=== PATIENT | female | born 1935 | race Caucasian/White ===

== ENCOUNTER 2019-02-16 10:27 | Inpatient (IN) | payer MEDICARE, OTHER ==
[~2019-02-16] VITALS: Ht 154.9 cm; Wt 73.4 kg
[2019-02-16 11:30] VITALS: BP 131/60
[2019-02-16] MEDS ORDERED: VYTO10TA18 PO (11:59)
[2019-02-16] MEDS ORDERED: METF-839 PO (11:59)
[2019-02-16] MEDS ORDERED: METF500T4 PO (11:59)
[2019-02-16] MEDS ORDERED: NEXI40CA PO (11:59)
[2019-02-16] MEDS ORDERED: LISI20TA PO (11:59)
[2019-02-16] MEDS ORDERED: FOSA70TA PO (11:59)
[2019-02-16] MEDS ORDERED: BISO5TAB5 PO (11:59)
[2019-02-16] MEDS ORDERED: LORA-674 PO (11:59)
[2019-02-16] MEDS ORDERED: OS-CTAB3 PO (11:59)
[2019-02-16] MEDS ORDERED: CENT1TAB PO (11:59)
[2019-02-16] MEDS ORDERED: ASPI81TA85 PO (11:59)
[2019-02-16] MEDS ORDERED: SALOPAD4 TD (11:59)
[2019-02-16] MEDS ORDERED: LISI10TA2 PO (12:03)
[2019-02-16] MEDS ORDERED: MERO1INJ IV (12:06)
[2019-02-16] MEDS ORDERED: ENOX30IN3 SC (12:06)
[2019-02-16 12:39] LABS: HEMOGLOBIN 12.6 g/dl (12.0-15.5); MEAN CORPUSCULAR HEMOGLOBIN 30.9 pg (27.0-33.0); MEAN CORPUSCULAR HGB CONC 33.2 g/dl (32.0-36.5); MEAN CORPUSCULAR VOLUME 93.1 fl (80.0-96.0); PLATELET COUNT, AUTOMATED 185 10^3/uL (150-450); RED BLOOD COUNT 4.08 10^6/uL (4.00-5.40); WHITE BLOOD COUNT 17.1 10^3/uL (4.0-10.0)
[2019-02-16 12:56] LABS: INR 1.26
[2019-02-16] MEDS: D5W/0.9% SODIUM CHLORIDE 1,000 ML IV SCH ×2 (13:00→19:43)
[2019-02-16] MEDS ORDERED: MORPHINE 4 MG/ML 1ML VIAL/SYRINGE (J2270) IV PRN (13:15)
[2019-02-16 14:00] LABS: CALCIUM LEVEL 8.4 MG/DL (8.8-10.2); POTASSIUM SERUM 3.7 MEQ/L (3.5-5.1)
[2019-02-16 14:01] LABS: ALBUMIN 3.1 GM/DL (3.2-5.2); BILIRUBIN,TOTAL 3.6 MG/DL (0.2-1.0)
[2019-02-16] MEDS: HEPARIN SOD (PORCINE) 5000 UNITS/ML VIAL SC SCH ×2 (14:57→20:20)
--- NOTE | 2019-02-16 14:57 | HPEPDOC ---
General Date of Admission Feb 16, 2019 at 11:24 Primary Care Physician: A Other Providers Dr Agustin Chief Complaint The patient is a 83-year-old female admitted with a reason for visit of Cholangi tis. 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 US there showed cholelithiasis with thickening of wall with some pericholecystic fluid Patient was diagnosed with acute cholecystitis and was panned for cholecystectomy today however from last night patient started spiking fever and this am there was elevation of wbc and abnormality of LFTs. It was felt patient now probably has choledocholithiasis and cholangitis so the patient was transferred here for Gastroenterology evaluation and possible ERCP. Patient was admitted for Acute cholangitis and possibly choledocholithiasis. Home Medications Scheduled Alendronate Sodium (Fosamax) 70 Mg Tablet, 70 MG PO QWEEK, (Reported) THURSDAYS Aspirin (Aspir 81) 81 Mg Tablet.dr, 81 MG PO QHS, (Reported) Bisoprolol Fumarate (Bisoprolol Fumarate) 5 Mg Tablet, 5 MG PO QPM, (Reported) Calcium Carbonate/Vitamin D3 (Os-Pramod 500-Vit D3 200 Caplet) 1 Each Tablet, 1 TAB PO DAILY, (Reported) Enoxaparin Sodium (Enoxaparin Sodium) 30 Mg/0.3 Ml Syringe, 30 MG SC DAILY, (Reported) GIVEN AT [facility] Esomeprazole Magnesium (Nexium) 40 Mg Capsule.dr, 40 MG PO DAILY, (Reported) Ezetimibe/Simvastatin (Vytorin 10-10 mg Tablet) 1 Each Tablet, 1 TAB PO DAILY, (Reported) Lisinopril/Hydrochlorothiazide (Lisinopril-Hctz 10-12.5 mg Tab) 1 Each Tablet, 1 TAB PO DAILY, (Reported) Loratadine (Loratadine) 10 Mg Tablet, 10 MG PO QHS, (Reported) Meropenem (Meropenem) 1 Gm Vial, 1 GM IV Q12H, (Reported) GIVEN AT [facility] Metformin HCl (Metformin HCl ER) 500 Mg Tab.er.24h, 500 MG PO DAILY, (Reported) Multivit-Min/FA/Lycopen/Lutein (Centrum Silver Tablet) 1 Each Tablet, 1 TAB PO DAILY, (Reported) Scheduled PRN Methyl Salicylate/Menthol (Salonpas Patch) 1 Each Adh..patch, 1 EACH TD DAILY PRN for BACK PAIN, (Reported) Allergies Coded Allergies: No Known Allergies (Unverified Allergy, Unknown, 02/16/19) Past Medical History Medical History Diabetes, Hypertension, hyperlipidemia, CVA, osteoporosis, vit d deficiency, cataracts Surgical History None Family History Significant Family History: Hypertension Social History * Smoker: Denies Alcohol: Denies Drugs: denies A-FIB/CHADSVASC A-FIB History Current/History of A-Fib/PAF?: No Review of Systems Constitutional: Reports: Fever, Weakness Eyes: Denies: Pain, Vision change, Conjunctivae inflammation, Eyelid inflammation, Redness, Other Skin: Denies: Jaundice, Itching Pulmonary: Denies: Dyspnea, Cough, Pleuritic Chest Pain Cardiovascular: Denies: Chest Pain, Palpitations, Orthopnea, Paroxysmal Noc. Dyspnea, Edema Gastrointestinal: Reports: Nausea, Vomiting, Abdominal Pain; Denies: Diarrhea, Constipation, Melena, Hematochezia Hematologic: Denies: Bleeding Excessively, Petecchia Neurological: Reports: Weakness (chronic right sided), Change in speech (chronic after stroke), Other Symptoms (difficulty in writing after stroke) Psych: Reports: Mood Normal Physical Examination General Exam: Positive: Alert, Cooperative, No Acute Distress, Moderate Distress Eye Exam: Positive: PERRLA, Conjunctiva & lids normal, EOMI; Negative: Sclera icteric ENT Exam: Positive: Atraumatic, Tongue Midline, Other ENT (dry mucous membrane) Neck Exam: Positive: Supple; Negative: JVD, thyromegaly Chest Exam: Positive: Clear to auscultation, Normal air movement Heart Exam: Positive: Rate Normal, Regular Rhythm, Normal S1, Normal S2; Negative: Murmurs, Rubs Telemetry: Positive: No significant arrhythmia Abdomen Exam: Positive: BS Hypoactive, Tenderness (right upper quadrant and right lumber region), Other (no guarding or rigidity, But reboud tenderness present) Extremity Exam: Negative: Clubbing, Cyanosis, Edema Skin Exam: Positive: Nl turgor and temperature Laboratory Data Labs 24H Laboratory Tests 2 02/16/19 12:24: Nucleated Red Blood Cells % (auto) 0.0, Prothrombin Time 16.0H, Prothromb Time International Ratio 1.26, Lactic Acid Level 1.6 CBC/BMP Laboratory Tests 02/16/19 12:24 Red Blood Count 4.08, Mean Corpuscular Volume 93.1, Mean Corpuscular Hemoglobin 30.9, Mean Corpuscular Hemoglobin Concent 33.2, Red Cell Distribution Width 13.3 Microbiology Microbiology 02/16/19 Blood Culture, Received Pending Assessment/Plan This is a 83 year old female with PMH of Diabetes, hypertension, hyperlipidemia, 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 US there showed cholelithiasis with thickening of wall with some pericholecystic fluid Patient was diagnosed with acute cholecystitis and was panned for cholecystectomy today however from last night patient started spiking fever and this am there was elevation of wbc and abnormality of LFTs. It was felt patient now probably has choledocholithiasis and cholangitis so the patient was transferred here for Gastroenterology evaluation and possible ERCP. Patient was admitted for Acute cholangitis and possibly choledocholithiasis. Cholelithiasis/choledocholithiasis with cholangitis will keep patient NPO, IVF, morphine prn for pain. Zofran for nausea Meropenem GI consult Dr Mckinnon. Diabetes will hold metformin check FS q 6 hours and lispro as needed. Hypertension BP well controlled at this point will hold ACEi and HCTZ will continue bisoprolol with hold parameters Hyperlipidemia will hold statin and ezetimibe at this point GI prophylaxis with pantoprazole Plan / VTE VTE Prophylaxis Ordered?: Yes DALTON ZAMAN MD Feb 16, 2019 14:28
[2019-02-16] MEDS: MEROPENEM INJ 1 GM in APPROPRIATE DILUENT 1 EA IV SCH ×2 (14:58→20:20)
[2019-02-16] MEDS ORDERED: ONDANSETRON 4MG/2ML VIAL (J2405) IV PRN ×2 (15:00→18:15)
[2019-02-16 15:36] VITALS: BP 135/61
[2019-02-16] MEDS ORDERED: ISOVUE-300 61% 50ML VIAL (Q9967) As Ordered ONE ×2 (15:47→17:29)
[2019-02-16 16:10] LABS: CREATININE FOR GFR 0.96 MG/DL (0.55-1.30); GLOMERULAR FILTRATION RATE 58.8 (>32)
[2019-02-16] MEDS ORDERED: dexameTHASONE 4 MG/ML 1ML VIAL (J1100) As Ordered ONE (16:30)
[2019-02-16] MEDS ORDERED: PROPOFOL 200 MG/20 ML VIAL As Ordered ONE (16:39)
[2019-02-16] MEDS ORDERED: LIDOCAINE 2% INJ 100 MG/5 ML SDV (FOR ANES.) As Ordered ONE (16:39)
[2019-02-16] MEDS ORDERED: fentaNYL 100 MCG/2 ML INJECTION (J3010) As Ordered ONE (16:39)
[2019-02-16] MEDS ORDERED: ROCURONIUM BROMIDE 50 MG/5 ML VIAL As Ordered ONE (16:39)
[2019-02-16] MEDS ORDERED: ONDANSETRON 4MG/2ML VIAL (J2405) As Ordered ONE (16:46)
[2019-02-16] MEDS ORDERED: SUGAMMADEX SODIUM 500 MG/5 ML VIAL (BRIDION) As Ordered ONE (17:18)
--- NOTE | 2019-02-16 17:35 | ROOR ---
Patient Name: Yi Hampton Procedure Date: 02/16/2019 3:54 PM Date of : 1935 Age: 83 Room: Main OR Gender: Female Note Status: Finalized Procedure: ERCP Indications: Evaluation and possible treatment of bile duct stone(s), Suspected bile duct stone(s), Ascending cholangitis, Elevated liver enzymes Providers: Onofre MCKINNON MD Referring MD: 2. Inpatient 2. Inpatient Requesting Provider: Medicines: Monitored Anesthesia Care Complications: No immediate complications. Procedure: Pre-Anesthesia Assessment: - The heart rate, respiratory rate, oxygen saturations, blood pressure, adequacy of pulmonary ventilation, and response to care were monitored throughout the procedure. The Duodenoscope was introduced through the mouth, and advanced to the duodenum and used to inject contrast into the bile duct. The ERCP was accomplished without difficulty. The patient tolerated the procedure well. Findings: The residential therapist film was normal. The esophagus was successfully intubated under direct vision. The scope was advanced to a very small/pinpoint major papilla in the descending duodenum. The upper GI tract was noted for a few duodenal erosions/superficial ulcerations. The papilla was noted to be very small/pinpoint and was difficult to find. Pus is seen draining from it spontaneously. Tiny debris are seen draining from it spontaneously. A straight Roadrunner wire was passed into the biliary tree. The bile duct was then deeply cannulated over the guidewire. Contrast was injected. I personally interpreted the bile duct images. Ductal flow of contrast was adequate. Image quality was adequate. Contrast extended to the main bile duct. Contrast extended to the bifurcation. Contrast extended to the hepatic ducts. Opacification of the entire biliary tree except for the gallbladder was successful. The maximum diameter of the ducts was 8 mm. A 6 mm biliary sphincterotomy was made with a monofilament traction (standard) sphincterotome using ERBE electrocautery. There was no post-sphincterotomy bleeding. The biliary tree was swept with a 9 mm balloon starting at the bifurcation. Debris was swept from the duct. Pus was swept from the duct. Cells for cytology were obtained by brushing in the lower third of the main bile duct. Antrum was biopsied with a cold forceps for Helicobacter pylori testing. Impression: - The papilla was very small, possibly stenosed. - A biliary sphincterotomy was performed. - The biliary tree was swept and a few tiny debris and moderate pus were found. - Cells for cytology obtained in the lower third of the main duct. - Duodenal erosions seen. Biopsy was performed antrum. Recommendation: - Observe patient's clinical course. - Clear liquid diet today. - Advance diet as tolerated tomorrow. - Surgical consultation for consideration of cholecystectomy at appointment to be scheduled. Onofre Mckinnon MD Onofre MCKINNON MD 02/16/2019 5:35:05 PM Electronically signed by Onofre MCKINNON MD Number of Addenda: 0 Note Initiated On: 02/16/2019 3:54 PM Estimated Blood Loss: Estimated blood loss: none.
[2019-02-16] MEDS ORDERED: fentaNYL 100 MCG/2 ML INJECTION (J3010) IV PRN (18:15)
[2019-02-16] MEDS ORDERED: LR 1,000 ML IV SCH (18:15)
[2019-02-16 18:20] VITALS: BP 171/70
[2019-02-16 20:00] VITALS: BP 138/62
[2019-02-16] MEDS: BISOPROLOL FUMARATE 5 MG TAB PO SCH (20:20)
[2019-02-17] VITALS: BP 127/64
[2019-02-17] MEDS ORDERED: traMADol 50 MG TAB PO PRN (00:45)
[2019-02-17 04:00] VITALS: BP 135/65
[2019-02-17 05:36] LABS: BASO % 0.1 % (0.0-1.0); HEMATOCRIT 36.4 % (36.0-47.0); HEMOGLOBIN 12.3 g/dl (12.0-15.5); LYMPH # 0.7 10^3/uL (1.5-4.5); LYMPH % 4.3 % (24.0-44.0); MEAN CORPUSCULAR HEMOGLOBIN 31.1 pg (27.0-33.0); MEAN CORPUSCULAR HGB CONC 33.8 g/dl (32.0-36.5); MEAN CORPUSCULAR VOLUME 92.2 fl (80.0-96.0); MONO # 0.5 10^3/uL (0.0-0.8); MONO % 3.1 % (0.0-5.0); NEUTROPHILS # 14.6 10^3/uL (1.8-7.7); NEUTROPHILS % 91.7 % (36.0-66.0); PLATELET COUNT, AUTOMATED 167 10^3/uL (150-450); RED BLOOD COUNT 3.95 10^6/uL (4.00-5.40); WHITE BLOOD COUNT 15.9 10^3/uL (4.0-10.0)
[2019-02-17] MEDS: MEROPENEM INJ 1 GM in APPROPRIATE DILUENT 1 EA IV SCH ×3 (05:43→21:33)
[2019-02-17 06:06] LABS: ALBUMIN 2.6 GM/DL (3.2-5.2); BILIRUBIN,TOTAL 4.2 MG/DL (0.2-1.0); CALCIUM LEVEL 8.1 MG/DL (8.8-10.2); CREATININE FOR GFR 0.95 MG/DL (0.55-1.30); GLOMERULAR FILTRATION RATE 59.5 (>32); POTASSIUM SERUM 3.3 MEQ/L (3.5-5.1); TOTAL PROTEIN 6.3 GM/DL (6.4-8.2)
[2019-02-17 08:00] VITALS: BP 129/67
[2019-02-17] MEDS: HEPARIN SOD (PORCINE) 5000 UNITS/ML VIAL SC SCH ×2 (08:52→21:33)
[2019-02-17] MEDS: KCL 10MEQ/100ML SWI (KRUN) 10 MEQ in APPROPRIATE DILUENT 1 EA IV SCH ×2 (08:53→11:08)
--- NOTE | 2019-02-17 08:56 | REP ---
ERCP: 33 views. History: ERCP in OR. No comparison imaging. 3 minutes 21 seconds of fluoroscopy time is reported. Findings: A sequence of 33 last image hold fluoroscopically obtained spot radiographs of the right upper quadrant demonstrate endoscopic cannulation, contrast injection, and manipulation of the common bile duct. Electronically Signed by Anurag Castle MD 02/17/2019 08:59 A
[2019-02-17 12:00] VITALS: BP 136/67
--- NOTE | 2019-02-17 12:44 | IPNPDOC ---
Subjective Date Seen The patient was seen on 02/17/19. Subjective Chief Complaint/HPI Choledocholithiasis and cholangitis Events since last encounter Patient had ERCP with sphincterotomy last night. Abdominal pain a little better this morning. No vomiting or dry heaves. No fever or chills, no diarrhea. No b owel movement but has been passing gas. No chest pain or SOB Objective Physical Examination General Exam: Positive: Alert, Cooperative, No Acute Distress, Moderate Distress Eye Exam: Positive: PERRLA, Conjunctiva & lids normal, EOMI; Negative: Sclera icteric ENT Exam: Positive: Atraumatic, Tongue Midline, Other ENT (dry mucous membrane) Neck Exam: Positive: Supple; Negative: JVD, thyromegaly Chest Exam: Positive: Clear to auscultation, Normal air movement Heart Exam: Positive: Rate Normal, Regular Rhythm, Normal S1, Normal S2; Negative: Murmurs, Rubs Telemetry: Positive: No significant arrhythmia Abdomen Exam: Positive: BS Hypoactive, Tenderness (right upper quadrant and right lumber region), Other (no guarding or rigidity, But reboud tenderness present) Extremity Exam: Negative: Clubbing, Cyanosis, Edema Skin Exam: Positive: Nl turgor and temperature Assessment /Plan Assessment This is a 83 year old female with PMH of Diabetes, hypertension, hyperlipidemia, 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 US there showed cholelithiasis with thickening of wall with some pericholecystic fluid Patient was diagnosed with acute cholecystitis and was panned for cholecystectomy today however from last night patient started spiking fever and this am there was elevation of wbc and abnormality of LFTs. It was felt patient now probably has choledocholithiasis and cholangitis so the patient was transferred here for Gastroenterology evaluation and possible ERCP. Patient was admitted for Acute cholangitis and possibly choledocholithiasis. Cholelithiasis/choledocholithiasis with cholangitis S/p ERCP on 02/17/19 s/p sphincterotomy and removal of sludge from the CBD will need to see surgeon for cholecystectomy soon after discharge. Clear liquids advance diet as tolerated. Zofran, morphine prn. Meropenem GI consult Dr Mckinnon. Diabetes will hold metformin lispro as needed Ac Hypertension BP well controlled at this point will hold ACEi and HCTZ will continue bisoprolol with hold parameters Hyperlipidemia will hold statin and ezetimibe at this point GI prophylaxis with pantoprazole Plan/VTE VTE Prophylaxis Ordered?: Yes VS, I&O, 24H, Fishbone Vital Signs/I&O Vital Signs Date Time Temp Pulse Resp B/P (MAP) Pulse Ox O2 Delivery O2 Flow Rate FiO2 02/17/19 08:00 98.7 73 18 129/67 (87) 92 02/17/19 04:00 96.0 I&O- Last 24 Hours up to 6 AM 02/17/19 06:00 Intake Total 1370 ml Output Total 225 ml Balance 1145 ml Laboratory Data 24H LABS Laboratory Tests 2 02/16/19 18:46: Bedside Glucose (Misc Panel) 167H 02/17/19 05:25: Immature Granulocyte % (Auto) 0.8, White Blood Count 15.9H, Red Blood Count 3.95L, Hemoglobin 12.3, Hematocrit 36.4, Mean Corpuscular Volume 92.2, Mean Corpuscular Hemoglobin 31.1, Mean Corpuscular Hemoglobin Concent 33.8, Red Cell Distribution Width 13.2, Platelet Count 167, Neutrophils (%) (Auto) 91.7H, Lymphocytes (%) (Auto) 4.3L, Monocytes (%) (Auto) 3.1, Eosinophils (%) (Auto) 0.0, Basophils (%) (Auto) 0.1, Neutrophils # (Auto) 14.6H, Lymphocytes # (Auto) 0.7L, Monocytes # (Auto) 0.5, Eosinophils # (Auto) 0.0, Basophils # (Auto) 0.0, Nucleated Red Blood Cells % (auto) 0.0, Anion Gap 7L, Glomerular Filtration Rate 59.5, Blood Urea Nitrogen 13, Creatinine 0.95, Sodium Level 140, Potassium Level 3.3L, Chloride Level 110H, Carbon Dioxide Level 23, Calcium Level 8.1L, Aspartate Amino Transf (AST/SGOT) 563H, Alanine Aminotransferase (ALT/SGPT) 790H, Alkaline Phosphatase 234H, Total Bilirubin 4.2H, Total Protein 6.3L, Albumin 2.6L, Albumin/Globulin Ratio 0.70L 02/17/19 12:11: Bedside Glucose (Misc Panel) 138H CBC/BMP Laboratory Tests 02/17/19 05:25 Red Blood Count 3.95 L, Mean Corpuscular Volume 92.2, Mean Corpuscular Hemoglobin 31.1, Mean Corpuscular Hemoglobin Concent 33.8, Red Cell Distribution Width 13.2, Neutrophils (%) (Auto) 91.7 H, Lymphocytes (%) (Auto) 4.3 L, Monocytes (%) (Auto) 3.1, Eosinophils (%) (Auto) 0.0, Basophils (%) (Auto) 0.1, Neutrophils # (Auto) 14.6 H, Lymphocytes # (Auto) 0.7 L, Monocytes # (Auto) 0.5, Eosinophils # (Auto) 0.0, Basophils # (Auto) 0.0, Calcium Level 8.1 L, Aspartate Amino Transf (AST/SGOT) 563 H, Alanine Aminotransferase (ALT/SGPT) 790 H, Alkaline Phosphatase 234 H, Total Bilirubin 4.2 H, Total Protein 6.3 L, Albumin 2.6 L Microbiology Microbiology 02/16/19 Blood Culture, Received Pending DALTON ZAMAN MD Feb 17, 2019 12:43
[2019-02-17] MEDS ORDERED: PANTOPRAZOLE 40MG INJ (PROTONIX) (C9113) IV SCH (13:00)
[2019-02-17] MEDS: PANTOPRAZOLE 40MG INJ (PROTONIX) (C9113) IV SCH (14:32)
[2019-02-17 15:30] VITALS: BP 125/58
[2019-02-17] MEDS: HumaLOG INSULIN (NovoLOG) PER UNIT SC SCH (17:58)
[2019-02-17 20:00] VITALS: BP_SYST 142; BP_DIAS 65; BP_DIAS 70
[2019-02-17] MEDS: BISOPROLOL FUMARATE 5 MG TAB PO SCH (21:33)
[2019-02-18] MEDS: MEROPENEM INJ 1 GM in APPROPRIATE DILUENT 1 EA IV SCH ×3 (05:22→22:03)
[2019-02-18 06:00] VITALS: BP 148/67
[2019-02-18 07:09] LABS: BASO % 0.1 % (0.0-1.0); LYMPH # 0.7 10^3/uL (1.5-4.5); LYMPH % 5.7 % (24.0-44.0); MEAN CORPUSCULAR HEMOGLOBIN 30.5 pg (27.0-33.0); MEAN CORPUSCULAR HGB CONC 33.3 g/dl (32.0-36.5); MEAN CORPUSCULAR VOLUME 91.4 fl (80.0-96.0); MONO # 0.3 10^3/uL (0.0-0.8); MONO % 2.6 % (0.0-5.0); NEUTROPHILS # 10.7 10^3/uL (1.8-7.7); NEUTROPHILS % 91.1 % (36.0-66.0); PLATELET COUNT, AUTOMATED 167 10^3/uL (150-450); RED BLOOD COUNT 3.61 10^6/uL (4.00-5.40); WHITE BLOOD COUNT 11.7 10^3/uL (4.0-10.0)
[2019-02-18 07:46] LABS: ALBUMIN 2.2 GM/DL (3.2-5.2); ALT/SGPT 616 U/L (12-78); BILIRUBIN,TOTAL 1.5 MG/DL (0.2-1.0); BLOOD UREA NITROGEN 13 MG/DL (7-18); CALCIUM LEVEL 7.8 MG/DL (8.8-10.2); CARBON DIOXIDE LEVEL 22 MEQ/L (21-32); CHLORIDE LEVEL 114 MEQ/L (98-107); CREATININE FOR GFR 0.81 MG/DL (0.55-1.30); GLOMERULAR FILTRATION RATE > 60.0 (>32); GLUCOSE, FASTING 128 MG/DL (70-100); POTASSIUM SERUM 3.6 MEQ/L (3.5-5.1); SODIUM LEVEL 142 MEQ/L (136-145); TOTAL PROTEIN 5.9 GM/DL (6.4-8.2)
[2019-02-18] MEDS: HEPARIN SOD (PORCINE) 5000 UNITS/ML VIAL SC SCH ×2 (08:43→20:23)
[2019-02-18] MEDS: PANTOPRAZOLE 40MG INJ (PROTONIX) (C9113) IV SCH (08:43)
[2019-02-18] MEDS: HumaLOG INSULIN (NovoLOG) PER UNIT SC SCH ×3 (08:44→17:30)
--- NOTE | 2019-02-18 11:55 | IPNPDOC ---
Subjective Date Seen The patient was seen on 02/18/19. Subjective Chief Complaint/HPI Cholangitis, Choledocolithiais. Events since last encounter Feels much better today , tolerating solid food, abdominal pain is improving, no nausea or vomiting any more. Had a good bowel movement this am. No fever or chills, no chest pain or sob , Objective Physical Examination General Exam: Positive: Alert, Cooperative, No Acute Distress, Moderate Distress Eye Exam: Positive: PERRLA, Conjunctiva & lids normal, EOMI; Negative: Sclera icteric ENT Exam: Positive: Atraumatic, Tongue Midline, Other ENT (dry mucous membrane) Neck Exam: Positive: Supple; Negative: JVD, thyromegaly Chest Exam: Positive: Clear to auscultation, Normal air movement Heart Exam: Positive: Rate Normal, Regular Rhythm, Normal S1, Normal S2; Negative: Murmurs, Rubs Telemetry: Positive: No significant arrhythmia Abdomen Exam: Positive: Normal bowel sounds, Soft, Other (no guarding or rigidity, But reboud tenderness present) Extremity Exam: Negative: Clubbing, Cyanosis, Edema Skin Exam: Positive: Nl turgor and temperature Assessment /Plan Assessment This is a 83 year old female with PMH of Diabetes, hypertension, hyperlipidemia, 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 US there showed cholelithiasis with thickening of wall with some pericholecystic fluid Patient was diagnosed with acute cholecystitis and was panned for cholecystectomy today however from last night patient started spiking fever and this am there was elevation of wbc and abnormality of LFTs. It was felt patient now probably has choledocholithiasis and cholangitis so the patient was transferred here for Gastroenterology ev aluation and possible ERCP. Patient was admitted for Acute cholangitis and possibly choledocholithiasis. Cholelithiasis/choledocholithiasis with cholangitis S/p ERCP on 02/17/19 s/p sphincterotomy as sphincter was very small and stenosed , removal of debris and pus from the CBD will need to see surgeon for cholecystectomy advance diet as tolerated. Zofran, morphine prn. Meropenem GI consult Dr Mckinnon. Duodenal erosions continue PPI Diabetes will hold metformin lispro as needed Ac Hypertension BP well controlled at this point will hold ACEi and HCTZ will continue bisoprolol with hold parameters Hyperlipidemia will hold statin and ezetimibe at this point GI prophylaxis with pantoprazole Plan/VTE VTE Prophylaxis Ordered?: Yes VS, I&O, 24H, Fishbone Vital Signs/I&O Vital Signs Date Time Temp Pulse Resp B/P (MAP) Pulse Ox O2 Delivery O2 Flow Rate FiO2 02/18/19 06:00 98.0 71 18 148/67 (94) 95 02/17/19 04:00 96.0 I&O- Last 24 Hours up to 6 AM 02/18/19 06:00 Intake Total 1530 ml Output Total 225 ml Balance 1305 ml Laboratory Data 24H LABS Laboratory Tests 2 02/17/19 12:11: Bedside Glucose (Misc Panel) 138H 02/17/19 17:27: Bedside Glucose (Misc Panel) 129H 02/18/19 06:40: Immature Granulocyte % (Auto) 0.5, White Blood Count 11.7H, Red Blood Count 3.61L, Hemoglobin 11.0L, Hematocrit 33.0L, Mean Corpuscular Volume 91.4, Mean Corpuscular Hemoglobin 30.5, Mean Corpuscular Hemoglobin Concent 33.3, Red Cell Distribution Width 13.6, Platelet Count 167, Neutrophils (%) (Auto) 91.1H, Lymphocytes (%) (Auto) 5.7L, Monocytes (%) (Auto) 2.6, Eosinophils (%) (Auto) 0.0, Basophils (%) (Auto) 0.1, Neutrophils # (Auto) 10.7H, Lymphocytes # (Auto) 0.7L, Monocytes # (Auto) 0.3, Eosinophils # (Auto) 0.0, Basophils # (Auto) 0.0, Nucleated Red Blood Cells % (auto) 0.0, Anion Gap 6L, Glomerular Filtration Rate > 60.0, Blood Urea Nitrogen 13, Creatinine 0.81, Sodium Level 142, Potassium Level 3.6, Chloride Level 114H, Carbon Dioxide Level 22, Calcium Level 7.8L, Aspartate Amino Transf (AST/SGOT) 383H, Alanine Aminotransferase (ALT/SGPT) 616H, Alkaline Phosphatase 252H, Total Bilirubin 1.5#H, Total Protein 5.9L, Albumin 2.2L, Albumin/Globulin Ratio 0.59L CBC/BMP Laboratory Tests 02/18/19 06:40 Red Blood Count 3.61 L, Mean Corpuscular Volume 91.4, Mean Corpuscular Hemoglobin 30.5, Mean Corpuscular Hemoglobin Concent 33.3, Red Cell Distribution Width 13.6, Neutrophils (%) (Auto) 91.1 H, Lymphocytes (%) (Auto) 5.7 L, M onocytes (%) (Auto) 2.6, Eosinophils (%) (Auto) 0.0, Basophils (%) (Auto) 0.1, Neutrophils # (Auto) 10.7 H, Lymphocytes # (Auto) 0.7 L, Monocytes # (Auto) 0.3, Eosinophils # (Auto) 0.0, Basophils # (Auto) 0.0, Calcium Level 7.8 L, Aspartate Amino Transf (AST/SGOT) 383 H, Alanine Aminotransferase (ALT/SGPT) 616 H, Alkaline Phosphatase 252 H, Total Bilirubin 1.5 #H, Total Protein 5.9 L, Albumin 2.2 L Microbiology Microbiology 02/16/19 Blood Culture - Preliminary, Resulted No growth after 24 hours . All specim... DALTON ZAMAN MD Feb 18, 2019 11:55
[2019-02-18 14:00] VITALS: BP 147/66
[2019-02-18 20:00] VITALS: BP 148/66
[2019-02-18 20:23] VITALS: BP 148/66
[2019-02-18] MEDS: BISOPROLOL FUMARATE 5 MG TAB PO SCH (20:23)
[2019-02-19] MEDS: MEROPENEM INJ 1 GM in APPROPRIATE DILUENT 1 EA IV SCH (05:39)
[2019-02-19 06:00] VITALS: BP 139/70
[2019-02-19 07:44] LABS: BASO % 0.2 % (0.0-1.0); HEMATOCRIT 36.4 % (36.0-47.0); LYMPH # 1.5 10^3/uL (1.5-4.5); LYMPH % 13.2 % (24.0-44.0); MEAN CORPUSCULAR HEMOGLOBIN 30.6 pg (27.0-33.0); MEAN CORPUSCULAR VOLUME 92.9 fl (80.0-96.0); MONO # 0.5 10^3/uL (0.0-0.8); MONO % 4.7 % (0.0-5.0); NEUTROPHILS % 81.3 % (36.0-66.0); PLATELET COUNT, AUTOMATED 187 10^3/uL (150-450); RED BLOOD COUNT 3.92 10^6/uL (4.00-5.40); WHITE BLOOD COUNT 11.1 10^3/uL (4.0-10.0)
[2019-02-19 07:58] LABS: ALBUMIN 2.5 GM/DL (3.2-5.2); ALT/SGPT 547 U/L (12-78); BLOOD UREA NITROGEN 13 MG/DL (7-18); CALCIUM LEVEL 8.5 MG/DL (8.8-10.2); CARBON DIOXIDE LEVEL 22 MEQ/L (21-32); CHLORIDE LEVEL 114 MEQ/L (98-107); CREATININE FOR GFR 0.76 MG/DL (0.55-1.30); GLOMERULAR FILTRATION RATE > 60.0 (>32); GLUCOSE, FASTING 105 MG/DL (70-100); POTASSIUM SERUM 3.9 MEQ/L (3.5-5.1); SODIUM LEVEL 142 MEQ/L (136-145); TOTAL PROTEIN 6.3 GM/DL (6.4-8.2)
[2019-02-19] MEDS: HEPARIN SOD (PORCINE) 5000 UNITS/ML VIAL SC SCH (08:51)
[2019-02-19] MEDS: HumaLOG INSULIN (NovoLOG) PER UNIT SC SCH (08:51)
[2019-02-19] MEDS: PANTOPRAZOLE 40MG INJ (PROTONIX) (C9113) IV SCH (08:51)
[2019-02-19] MEDS ORDERED: AUGM875T28 PO (09:25)
--- NOTE | 2019-02-19 12:52 | DS.PDOC ---
Discharge Summary General Date of Admission Feb 16, 2019 at 11:24 Date of Discharge 02/19/19 Discharge Summary PROCEDURES PERFORMED DURING STAY: ERC with sphincterotomy DISCHARGE DIAGNOSES: Cholangitis Cholelithiasis with choledocholithiasis s/p ERCP and sphincterotomy Hypertension Diabetes Hyperlipidemia Duodenal erosions. COMPLICATIONS/CHIEF COMPLAINT: Cholangitis. 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 US there showed cholelithiasis with thickening of wall with some pericholecystic fluid Patient was diagnosed with acute cholecystitis and was panned for cholecystectomy today however from last night patient started spiking fever and this am there was elevation of wbc and abnormality of LFTs. It was felt patient now probably has choledocholithiasis and cholangitis so the patient was transferred here for Gastroenterology evaluation and possible ERCP. Patient was admitted for Acute cholangitis and possibly choledocholithiasis. Cholelithiasis/choledocholithiasis with cholangitis S/p ERCP on 02/17/19 s/p sphincterotomy as sphincter was very small and stenosed , removal of debris and pus from the CBD will need to see surgeon for cholecystectomy in [place] next 2 to 4 weeks. received meropenem in hospital tolerating regular low fat diet seen by Dr Mills surgery can be done in about 2 weeks once the GB inflammation has improved GI consult Dr Mckinnon. Discharge home with Augmentin to finish 7 days of antibiotics. Duodenal erosions continue PPI Diabetes restart metformin Hypertension restart ACEi and HCTZ will continue bisoprolol Hyperlipidemia will hold statin and ezetimibe at this point GI prophylaxis with pantoprazole DISCHARGE MEDICATIONS: Please see below. ALLERGIES: Please see below. PHYSICAL EXAMINATION ON DISCHARGE: VITAL SIGNS: Please see below. General Exam: Positive: Alert, Cooperative, No Acute Distress, Moderate Distress Eye Exam: Positive: PERRLA, Conjunctiva & lids normal, EOMI; Negative: Sclera icteric ENT Exam: Positive: Atraumatic, Tongue Midline, Other ENT (dry mucous membrane) Neck Exam: Positive: Supple; Negative: JVD, thyromegaly Chest Exam: Positive: Clear to auscultation, Normal air movement Heart Exam: Positive: Rate Normal, Regular Rhythm, Normal S1, Normal S2; Negative: Murmurs, Rubs Telemetry: Positive: No significant arrhythmia Abdomen Exam: Positive: Normal bowel sounds, Soft, Other (no guarding or rigidity, or rebound tenderness present) Extremity Exam: Negative: Clubbing, Cyanosis, Edema Skin Exam: Positive: Nl turgor and temperature LABORATORY DATA: Please see below. ACTIVITY: [As tolerated]. DIET: Low fat low cholesterol DISCHARGE PLAN: Home DISCHARGE INSTRUCTIONS: Follow up with Dr Mills or a Surgeon of your choice in 2 weeks PMD in 1 week DISCHARGE CONDITION: [Stable]. TIME SPENT ON DISCHARGE: Greater than 30 minutes. Vital Signs/I&Os Vital Signs Date Time Temp Pulse Resp B/P (MAP) Pulse Ox O2 Delivery O2 Flow Rate FiO2 02/19/19 06:00 96.8 56 18 139/70 (93) 94 02/17/19 04:00 96.0 I&O- Last 24 Hours up to 6 AM 02/19/19 06:00 Intake Total 777 ml Output Total 0 ml Balance 777 ml Laboratory Data Labs 24H Laboratory Tests 2 02/18/19 17:10: Bedside Glucose (Misc Panel) 109 02/19/19 07:24: Immature Granulocyte % (Auto) 0.6, White Blood Count 11.1H, Red Blood Count 3.92L, Hemoglobin 12.0, Hematocrit 36.4, Mean Corpuscular Volume 92.9, Mean Corpuscular Hemoglobin 30.6, Mean Corpuscular Hemoglobin Concent 33.0, Red Cell Distribution Width 14.2, Platelet Count 187, Neutrophils (%) (Auto) 81.3H, Lymphocytes (%) (Auto) 13.2L, Monocytes (%) (Auto) 4.7, Eosinophils (%) (Auto) 0.0, Basophils (%) (Auto) 0.2, Neutrophils # (Auto) 9.0H, Lymphocytes # (Auto) 1.5, Monocytes # (Auto) 0.5, Eosinophils # (Auto) 0.0, Basophils # (Auto) 0.0, Nucleated Red Blood Cells % (auto) 0.0, Anion Gap 6L, Glomerular Filtration Rate > 60.0, Blood Urea Nitrogen 13, Creatinine 0.76, Sodium Level 142, Potassium Level 3.9, Chloride Level 114H, Carbon Dioxide Level 22, Calcium Level 8.5L, Aspartate Amino Transf (AST/SGOT) 241H, Alanine Aminotransferase (ALT/SGPT) 547H, Alkaline Phosphatase 351H, Total Bilirubin 1.0, Total Protein 6.3L, Albumin 2.5L, Albumin/Globulin Ratio 0.66L CBC/BMP Laboratory Tests 02/19/19 07:24 Red Blood Count 3.92 L, Mean Corpuscular Volume 92.9, Mean Corpuscular Hemoglobin 30.6, Mean Corpuscular Hemoglobin Concent 33.0, Red Cell Distribution Width 14.2, Neutrophils (%) (Auto) 81.3 H, Lymphocytes (%) (Auto) 13.2 L, Monocytes (%) (Auto) 4.7, Eosinophils (%) (Auto) 0.0, Basophils (%) (Auto) 0.2, Neutrophils # (Auto) 9.0 H, Lymphocytes # (Auto) 1.5, Monocytes # (Auto) 0.5, Eosinophils # (Auto) 0.0, Basophils # (Auto) 0.0, Calcium Level 8.5 L, Aspartate Amino Transf (AST/SGOT) 241 H, Alanine Aminotransferase (ALT/SGPT) 547 H, Alkaline Phosphatase 351 H, Total Bilirubin 1.0, Total Protein 6.3 L, Albumin 2.5 L FSBS Laboratory Tests Test 02/18/19 17:10 Range/Units Bedside Glucose (Misc Panel) 109 83-110 MG/DL Microbiology Microbiology 02/16/19 Blood Culture - Preliminary, Resulted No Growth after 72 hours. All specime... Discharge Medications Scheduled Alendronate Sodium (Fosamax) 70 Mg Tablet, 70 MG PO QWEEK, (Reported) THURSDAYS Amoxicillin/Potassium Clav (Augmentin 875-125 Tablet) 1 Each Tablet, 875 MG PO BID Aspirin (Aspir 81) 81 Mg Tablet.dr, 81 MG PO QHS, (Reported) Bisoprolol Fumarate (Bisoprolol Fumarate) 5 Mg Tablet, 5 MG PO QPM, (Reported) Calcium Carbonate/Vitamin D3 (Os-Pramod 500-Vit D3 200 Caplet) 1 Each Tablet, 1 TAB PO DAILY, (Reported) Esomeprazole Magnesium (Nexium) 40 Mg Capsule.dr, 40 MG PO DAILY, (Reported) Ezetimibe/Simvastatin (Vytorin 10-10 mg Tablet) 1 Each Tablet, 1 TAB PO DAILY, (Reported) Lisinopril/Hydrochlorothiazide (Lisinopril-Hctz 10-12.5 mg Tab) 1 Each Tablet, 1 TAB PO DAILY, (Reported) Loratadine (Loratadine) 10 Mg Tablet, 10 MG PO QHS, (Reported) Metformin HCl (Metformin HCl ER) 500 Mg Tab.er.24h, 500 MG PO DAILY, (Reported) Multivit-Min/FA/Lycopen/Lutein (Centrum Silver Tablet) 1 Each Tablet, 1 TAB PO DAILY, (Reported) Scheduled PRN Methyl Salicylate/Menthol (Salonpas Patch) 1 Each Adh..patch, 1 EACH TD DAILY PRN for BACK PAIN, (Reported) Allergies Coded Allergies: No Known Allergies (Unverified Allergy, Unknown, 02/16/19) DALTON ZAMAN MD Feb 19, 2019 12:52
--- NOTE | 2019-02-22 05:47 | CR ---
DATE OF CONSULTATION: 02/19/2019 REASON FOR CONSULTATION: Cholecystitis. HISTORY OF PRESENT ILLNESS: The patient is an 83-year-old female who presented from [facility] on February 16 due to concerns for ascending cholangitis. She underwent an endoscopic retrograde cholangiopancreatography (ERCP) with Dr. Shen on February 16 and was found to have sludge and some pus inside of her bile duct. Since that procedure she has been improving slowly. Her labs are all trending down. However, her liver function tests (LFTs) are still very elevated. She denies any current symptoms. Her abdominal pain is much improved. She denies any nausea or vomiting. No fevers. She is tolerating a diet and she is very anxious to go. She was evaluated by a surgeon at [facility], however that he was unable to take care of her because of the need for the ERCP. That is where she lives and she would like to return there to have her surgery done when she is ready. At this point she has no other complaints. She has not had any problems with this in the past and she is anxious to leave. PAST MEDICAL HISTORY: 1. Diabetes. 2. Hypertension. 3. Hyperlipidemia. 4. Cerebral vascular accident (CVA). 5. Osteoporosis. 6. Vitamin D deficiency. 7. Cataracts. PAST SURGICAL HISTORY: None. FAMILY HISTORY: Noncontributory. ALLERGIES: None. HOME MEDICATIONS: Please see medical records. SOCIAL HISTORY: Denies drug, alcohol, tobacco abuse. REVIEW OF SYSTEMS: Per positives in history of present illness (HPI). PHYSICAL EXAMINATION: GENERAL: Awake, alert and oriented times three. No acute distress. VITAL SIGNS: Temperature 96.8, pulse 56, respirations 18, blood pressure 139/70, pulse ox 94% on room air. HEENT: Pupils equal round react to light accommodation. HEART: S1-S2, regular rate and rhythm. LUNGS: Clear to auscultation bilaterally. ABDOMEN: Soft, nontender, nondistended. No ventral hernias. EXTREMITIES: No clubbing, cyanosis or edema. LABORATORY DATA: White count 11.1, hemoglobin 12, platelets 187, bilirubin 1 down from 1.5, AST 241, ALT 547, alkaline phosphatase 351. ASSESSMENT/PLAN: The patient is an 83-year-old female with recent ascending cholangitis due to choledocholithiasis. She is feeling good today. Liver function tests (LFTs) are all trending downwards; however, they are still slightly elevated. Due to the significant inflammation on admission with cholangitis, recommend to hold off on surgery for a least a couple of weeks. Continue a weeks course of antibiotics. She is stable for discharge from a surgical standpoint today. She can follow up either with myself or with the surgeon in [place] to plan for an elective cholecystectomy in at least two weeks from now. All of her questions were answered.
== END 2019-02-19 11:31 | disposition home or self-care (01) | DRG 444 ==
LOC: M ICU 11:24 → M PCU 23:20 → M MS4PR 02-17 15:21
PROVIDERS: ADMIT Internal Medicine Nephrology; ATTEND Internal Medicine Nephrology
PROC: 0FF98ZZ Fragmentation in Common Bile Duct, Via Natural or Artificial Opening Endoscopic (ICD-10-PCS; 2019-02-16)
PROC: 0DB68ZX Excision of Stomach, Via Natural or Artificial Opening Endoscopic, Diagnostic (ICD-10-PCS; principal; 2019-02-16 15:05)
DX: K80.63 Calculus of gallbladder and bile duct with acute cholecystitis with obstruction (principal); K83.1 Obstruction of bile duct; I69.351 Hemiplegia and hemiparesis following cerebral infarction affecting right dominant side; I10 Essential (primary) hypertension; E78.5 Hyperlipidemia, unspecified; E11.9 Type 2 diabetes mellitus without complications; K26.9 Duodenal ulcer, unspecified as acute or chronic, without hemorrhage or perforation; Z79.82 Long term (current) use of aspirin; Z79.899 Other long term (current) drug therapy

== ENCOUNTER → 2019-04-11 | Outpatient (REF) ==
[~2019-04-11] MED LIST: ASPI81TA85 PO; AUGM875T28 PO; BISO5TAB5 PO; CENT1TAB PO; ENOX30IN3 SC; FOSA70TA PO; LISI10TA2 PO; LISI20TA PO; LORA-674 PO; MERO1INJ IV; METF-839 PO; METF500T4 PO; NEXI40CA PO; OS-CTAB3 PO; SALOPAD4 TD; VYTO10TA18 PO
== END ==
LOC: M LAB LCGH 10:21
PROVIDERS: ATTEND Surgery
DX: K80.33 Calculus of bile duct with acute cholangitis with obstruction (principal)

== ENCOUNTER → 2022-08-06 | Outpatient (REF) | payer MEDICARE, OTHER ==
[~2022-08-06] MED LIST changes: +ALEN70TA87 PO; -ASPI81TA85 PO; +ASPI81TA86 PO; +BISO5TAB14 PO; -BISO5TAB5 PO; +EZET-15 PO; -FOSA70TA PO; -LISI10TA2 PO; +LISI10TA24 PO; -LISI20TA PO; +LISI20TA35 PO; -MERO1INJ IV; +MERO1VIA3 IV; +METF-838 PO; -METF500T4 PO; +METH1ADH6 TD; -SALOPAD4 TD; -VYTO10TA18 PO
== END ==
LOC: M SFHCDERM 17:15
PROVIDERS: ATTEND Dermatology
DX: C44.519 Basal cell carcinoma of skin of other part of trunk (principal)

== ENCOUNTER → 2023-04-17 | Outpatient (CLI) | payer MEDICARE, OTHER ==
[~2023-04-17] MED LIST changes: +ASPI81CH33 PO; +LIDO76.52 TOP
== END ==
LOC: M ONCR 10:17
PROVIDERS: ATTEND General Practice
DX: C44.629 Squamous cell carcinoma of skin of left upper limb, including shoulder (principal); E11.9 Type 2 diabetes mellitus without complications; I10 Essential (primary) hypertension; M19.90 Unspecified osteoarthritis, unspecified site; Z71.2 Person consulting for explanation of examination or test findings; Z79.82 Long term (current) use of aspirin; Z79.84 Long term (current) use of oral hypoglycemic drugs; Z79.899 Other long term (current) drug therapy

== ENCOUNTER → 2023-05-25 | Outpatient (RCR) | payer MEDICARE, OTHER | LOC: M ONCR 04-30 10:00 | PROVIDERS: ATTEND General Practice | DX: C44.629 Squamous cell carcinoma of skin of left upper limb, including shoulder (principal) ==

== ENCOUNTER 2023-06-09 11:16 | Outpatient (RCR) | payer MEDICARE, OTHER ==
[~2023-06-09 11:16] MED LIST changes: +LORA-1041 PO; -LORA-674 PO
== END 2023-06-25 ==
LOC: M ONCR 11:16
PROVIDERS: ATTEND General Practice
DX: Z51.0 Encounter for antineoplastic radiation therapy (principal); C44.629 Squamous cell carcinoma of skin of left upper limb, including shoulder

== ENCOUNTER → 2023-06-25 | Outpatient (CLI) | payer MEDICARE, OTHER ==
[~2023-06-25] MED LIST changes: -LORA-1041 PO; +LORA-674 PO
== END ==
LOC: M ONCR 10:49
PROVIDERS: ATTEND General Practice
DX: C44.629 Squamous cell carcinoma of skin of left upper limb, including shoulder (principal); L58.9 Radiodermatitis, unspecified; Z92.3 Personal history of irradiation